=== PATIENT | male | born 1940 | race Native Hawaiian/Other Pacific Islander ===

== ENCOUNTER 2018-03-19 11:30 | Outpatient (CLI) | payer OTHER ==
[2018-03-19 12:38] LABS: PLATELET COUNT 153 K/uL (142-355)
[2018-03-19 13:34] LABS: POTASSIUM 4.6 mmol/L (3.6-5.2)
== END 2018-03-19 20:01 | disposition home or self-care (01) ==
LOC: LABW 11:30
PROVIDERS: Specialist
DX: I25.89 Other forms of chronic ischemic heart disease (principal); R07.9 Chest pain, unspecified
CPT/HCPCS: 36415; 80053; 85027

== ENCOUNTER 2018-05-13 09:19 | Outpatient (CLI) | payer OTHER | END 2018-05-13 19:27 | disposition home or self-care (01) | LOC: CT 09:19 | DX: R10.2 Pelvic and perineal pain (principal) | CPT/HCPCS: 36415; 82565; 84520; Q9963 ==

== ENCOUNTER 2018-06-04 08:11 | Observation (INO) | payer OTHER ==
[~2018-06-04] VITALS: Ht 167.6 cm; Wt 89.0 kg
[2018-06-04 09:07] LABS: PLATELET COUNT 148 K/uL (142-355)
[2018-06-04 09:15] LABS: POTASSIUM 4.7 mmol/L (3.6-5.2)
[2018-06-04 09:28] LABS: PARTIAL THROMBOPLASTIN TIME 25.3 SECONDS (24.5-33.6)
[2018-06-04 15:54] VITALS: BP 150/75; TEMP 98.1; Ht 167.6 cm; Wt 89.0 kg
[2018-06-04 20:00] VITALS: BP 150/80; TEMP 97.5
[2018-06-05] VITALS: BP 133/83; TEMP 98.3
[2018-06-05 04:18] VITALS: BP 116/68; TEMP 97.8
[2018-06-05 08:11] VITALS: BP 134/66; TEMP 97.8
== END 2018-06-05 09:35 | disposition home or self-care (01) ==
LOC: OR 08:11 → MED/SURG 15:06
PROVIDERS: ADMIT Student in an Organized Health Care Education/Training Program
PROC: 0YU50JZ Supplement Right Inguinal Region with Synthetic Substitute, Open Approach (ICD-10-PCS; principal; 2018-06-04)
DX: K40.90 Unilateral inguinal hernia, without obstruction or gangrene, not specified as recurrent (principal); N40.1 Benign prostatic hyperplasia with lower urinary tract symptoms; E11.9 Type 2 diabetes mellitus without complications; I10 Essential (primary) hypertension; E78.00 Pure hypercholesterolemia, unspecified; G47.33 Obstructive sleep apnea (adult) (pediatric); R06.09 Other forms of dyspnea; Z86.73 Personal history of transient ischemic attack (TIA), and cerebral infarction without residual deficits; I25.10 Atherosclerotic heart disease of native coronary artery without angina pectoris; I49.8 Other specified cardiac arrhythmias; I25.2 Old myocardial infarction; R10.84 Generalized abdominal pain
CPT/HCPCS: 80053; 85027; 85610; 85730; 93005; 94664; 96372; 99220; C1729; C1781; G0378; J0330; J0690; J1100; J1170; J1644; J1815; J2250; J2405; J2765; J3010; J3490

== ENCOUNTER 2018-08-20 12:45 | Outpatient (CLI) | payer OTHER | END 2018-08-20 23:44 | disposition home or self-care (01) | LOC: RESP 12:45 | DX: I48.91 Unspecified atrial fibrillation (principal); R00.2 Palpitations | CPT/HCPCS: 93225 ==

== ENCOUNTER 2019-09-09 17:59 | Outpatient (CLI) | payer OTHER | END 2019-09-09 22:16 | disposition home or self-care (01) | LOC: RAD 17:59 | DX: M25.541 Pain in joints of right hand (principal); M25.531 Pain in right wrist ==

== ENCOUNTER 2020-12-02 08:42 | Outpatient (CLI) | payer OTHER ==
[2020-12-02 09:45] LABS: POTASSIUM 4.7 mmol/L (3.6-5.2)
== END 2020-12-02 19:22 | disposition home or self-care (01) ==
LOC: LABW 08:42
PROVIDERS: ATTEND Specialist
DX: I10 Essential (primary) hypertension (principal)
CPT/HCPCS: 36415; 80048

== ENCOUNTER 2021-05-05 11:57 | Outpatient (CLI) | payer OTHER ==
[2021-05-05 13:00] LABS: POTASSIUM 5.7 mmol/L (3.6-5.2)
== END 2021-05-05 18:00 | disposition home or self-care (01) ==
LOC: LABW 11:57
PROVIDERS: ATTEND Internal Medicine Cardiovascular Disease
DX: I25.10 Atherosclerotic heart disease of native coronary artery without angina pectoris (principal); I63.9 Cerebral infarction, unspecified; I10 Essential (primary) hypertension; R06.00 Dyspnea, unspecified
CPT/HCPCS: 36415; 80048